=== PATIENT | male | born 2000 | race Asian ===

== ENCOUNTER 2022-01-06 14:25 | Emergency (ER) | payer OTHER, SELFPAY ==
[2022-01-06 14:26] VITALS: BP 132/82; PULSE 81; RESP 18; TEMP 36.7; O2SAT 98; BMI 28.8
--- NOTE | 2022-01-06 14:46 | EX.ED.DYSGE1 ---
HPI History of Present Illness Chief Complaint: Nausea/Vomiting Detail of Chief Complaint: Hemoptysis Informant: patient Onset/Context/Timing Current Severity: Mild Maximum Severity: Mild Narrative Narrative: Patient present secondary to coughing up blood this morning. He reports vomiting for the last month or so. He states really he has had frequent vomiting for the last 2 years but over the last month it seems to be nearly every day. He has tried some antacids intermittently in the past but never taken anything on a regular basis. Today he coughed and had some blood streaked sputum. This concerned him enough to come to the emergency room. He denies chest pain or shortness of breath. He denies abdominal pain. No dark stool. PFSH PFSH Medical History no medical history no medical history Home Medications omeprazole magnesium [Prilosec] 20 mg PO DAILY #30 ea 01/06/22 [Rx Last Taken Unknown] ondansetron 4 mg PO Q8H PRN #10 tab 01/06/22 [Rx Last Taken Unknown] Allergy/AdvReac Type Severity Reaction Status Date / Time No Known Allergies Allergy Verified 01/06/22 14:27 Surgical History no surgical history no surgical history Social History (Updated 01/06/22 @ 14:[address] Gretta Valerio MD) Smoking Status: Never smoker alcohol intake: current alcohol intake frequency: other details: Occasional substance use type: does not use ROS ROS ED Constitutional Constitutional ED: Denies chills or fever(s) Eyes Eyes: Denies change in vision ENT ENT ED: Denies sore throat Cardiovascular Cardiovascular: Denies chest pain Respiratory/Chest Respiratory/Chest: Reports cough; Denies dyspnea Gastrointestinal Gastrointestinal: Reports nausea and vomiting; Denies abdominal pain or diarrhea Genitourinary Genitourinary ED: Denies dysuria Musculoskeletal Musculoskeletal: Denies back pain or neck pain Integumentary Denies rash Neurologic Neurologic: Denies headache(s) or weakness Allergic/Immunologic Allergic/Immunologic ED: Denies urticaria EXAM Physical Exam Const Vital Signs: 01/06/22 14:26 Temperature 98.1 F Temperature Source Temporal Pulse Rate 81 Respiratory Rate 18 Blood Pressure 132/82 H Blood Pressure Mean 98 Pulse Ox 98 Oxygen Delivery Method Room Air Positive well nourished and well developed General Appearance ED: well developed HEENT Reports moist mucous membranes Eyes PERRL and EOMs intact bilaterally Neck supple Chest Wall inspection of chest normal and palpation of chest normal Resp normal respiratory effort and clear to auscultation bilaterally Cardio regular rate and regular rhythm GI normal to inspection, nondistended, normoactive bowel sounds and non-tender Palpation: soft Extremity normal to inspection Neuro oriented x3 Sensorium / Orientation: alert Psych mental status grossly normal Skin no rashes or lesions noted MDM MDM MDM Narrative Medical decision making narrative: Patient sent for two-view chest x-ray. Radiography Chest X-Ray - ED: 2 View, Read by ED Physician, Normal, Heart, Lungs and Mediastinum Treatment and Re-Evaluation Narrative: Patient's chest x-ray per my interpretation reveals no acute abnormalities. Test results discussed with the patient. I do believe he likely has irritation and some bleeding of small vessels from his repeated vomiting and coughing. He will be written for Zofran as well as Prilosec. He will follow-up with his primary care physician for referral to GI if needed. Return instructions are provided. Discharge Plan Triage Chief Complaint: Nausea/Vomiting ED Provider: Gretta Valerio Dx/Rx/DC Orders Clinical Impression: Hemoptysis, Gastritis Instructions: ED Gastritis (Adult), ED Hemoptysis Prescriptions: New ondansetron 4 mg tablet,disintegrating 4 mg PO Q8H PRN (Reason: nausea and vomiting) Qty: 10 RF: 0 Prilosec 10 mg susp,delayed release for recon 20 mg PO DAILY Qty: 30 RF: 0 Primary Care Provider: NOT,DEFINED Referrals: NOT,DEFINED [Primary Care Provider] - Activity Restrictions/Additional Instructions: Follow-up with your primary care physician as discussed. If needed you may be referred to a GI specialist for further evaluation of your stomach and repeated vomiting. Disposition Disposition: Home, Self Care
--- NOTE | 2022-01-06 14:50 | RAD_ITS ---
STUDY: X-RAY CHEST REASON FOR EXAM: Male, 21 years old. Hemoptysis TECHNIQUE: PA and lateral views of the chest. COMPARISON: None. FINDINGS: The lungs are clear and expanded. There is no demonstrated pleural abnormality. Normal size heart. Normal mediastinum and ashok. Normal visualized pulmonary arteries. Normal visualized aortic arch and descending thoracic aorta. Normal visualized thoracic spine. Normal visualized ribs, clavicles, and shoulders. There is no demonstrated abnormality of the visualized soft tissue structures of the upper abdomen. RAD/Chest PA and Lateral IMPRESSION: Normal x-ray examination of the chest. Electronically Signed: Derrick Ramirez MD at 15:12 EDT ,
== END 2022-01-06 15:41 | disposition home or self-care (01) ==
LOC: ED 15:28
PROVIDERS: Emergency Provider Emergency Medicine; Visit Provider Emergency Medicine
DX: R04.2 Hemoptysis (principal); K29.70 Gastritis, unspecified, without bleeding
CPT/HCPCS: 71046; 99282